=== PATIENT | male | born 2000 | race Caucasian/White ===

== ENCOUNTER 2022-02-23 02:11 | Outpatient (CLI) | payer OTHER, SELFPAY | END 2022-02-23 02:12 | disposition home or self-care (01) | LOC: AMB 03-05 15:02 | PROVIDERS: PCP Family Medicine; Visit Provider Family Medicine | DX: S09.93XA Unspecified injury of face, initial encounter (principal); Y04.0XXA Assault by unarmed brawl or fight, initial encounter; Y92.9 Unspecified place or not applicable | CPT/HCPCS: A0425; A0429 ==

== ENCOUNTER 2022-02-23 02:54 | Emergency (ER) | payer OTHER, SELFPAY ==
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
[2022-02-23 05:05] VITALS: BP 135/108; PULSE 125; RESP 16; TEMP 36.7; O2SAT 98; BMI 36.3
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
== END 2022-02-23 05:59 | disposition home or self-care (01) ==
PROVIDERS: Emergency Provider Family Medicine; PCP Family Medicine
DX: S00.83XA Contusion of other part of head, initial encounter (principal); Y04.2XXA Assault by strike against or bumped into by another person, initial encounter
CPT/HCPCS: 70486; 70490; 99283; 99284

== ENCOUNTER 2023-11-08 09:59 | Emergency (ER) | payer OTHER, SELFPAY ==
[2023-11-08 10:07] VITALS: BP 151/97; PULSE 68; RESP 16; TEMP 36.5; O2SAT 100; BMI 39.1
[2023-11-08 10:21] LABS: Appearance Urine Clear (Clear); Bilirubin Urine Negative (Negative); Blood Urine Negative (Negative); Color Urine Yellow (Yellow); Glucose Urine Negative (Negative); Ketones Urine Negative (Negative); Leukocyte Esterase Urine Negative (Negative); Nitrite Urine Negative (Negative); Protein Urine Negative (Negative); Specific Gravity Urine 1.025 (1.000-1.030); Urobilinogen Urine 0.2 (0.2-1.0); pH Urine 7.5 (5.0-8.5)
--- NOTE | 2023-11-08 10:21 | ED_ITS ---
HPI - General Adult General Chief complaint: Abdominal Pain Stated complaint: pain in R side abdomen Time Seen by Provider: 11/08/23 10:16 History of Present Illness HPI narrative: This 23-year-old male comes in reporting pain that began last evening in his right flank and lower back and now radiates around to his abdomen. He does not report any vomiting and has not had any fevers. He does not report any injury event. He indicates no personal or family history of kidney stones. He states that he did have a fair amount of alcohol last evening but this is not uncommon for him on occasion. He does report some nausea symptoms. Related Data Home Medications Medication Instructions Recorded Confirmed lisdexamfetamine 50 mg capsule mg 02/23/22 (Vyvanse) Previous Rx's Medication Instructions Recorded ketorolac 10 mg tablet 10 mg PO Q8H 5 days #15 tabs 11/08/23 Allergies Allergy/AdvReac Type Severity Reaction Status Date / Time No Known Drug Allergies Allergy Verified 02/23/22 05:05 Review of Systems Status of ROS: Reports: 10 or more systems reviewed and unremarkable except as noted in History and below Narrative: Constitutional: No fevers, no weight gain or loss. Eyes: No discharge. No vision changes. HENT: No congestion, no sore throat, no ear pain. Cardiovascular: No chest pain, no palpitations. Respiratory: No shortness of breath, no wheezes, no cough. Gastrointestinal: No vomiting, no diarrhea. Right flank pain and right abdominal pain. Genitourinary: No dysuria, no hematuria. Musculoskeletal: Normal range of motion. Skin: No rashes, no pruritis. Neurological: No dizziness, weakness, sensory change, speech change. Endo/Heme/Allergies: No bruising or bleeding. No polydipsia. Pysch: no suicidality, no anxiety, no insomnia. All other systems reviewed and are negative. PFSH PFSH Social History Smoking Status: Current some day smoker What tobacco products do you use: cigars How often do you have a drink containing alcohol: 2-3 times a week How many standard drinks containing alcohol do you have on a typical day: 10 or more How often do you have six or more drinks on one occasion: Weekly AUDIT-C Alcohol total score: 10 Non-prescribed substance use: denies use Exam Narrative: Exam Narrative: Constitutional: Well-developed, well-nourished, no acute distress. HEENT: Normocephalic, atraumatic. Neck: Normal range of motion. Nontender. Supple. Heart: Regular. No murmurs. Normal rate. Intact distal pulses. Lungs: Clear to auscultation. No chest discomfort. No wheezes, rhonchi, or rales. Abdomen: Normal bowel sounds. Some tenderness in the right abdomen. Rovsing sign is negative. No rebound tenderness. Genitalia: Deferred. Back: No midline tenderness. Normal range of motion. Extremities: Normal range of motion. No injury. Skin: Intact. No rash. Warm. No erythema or pallor. Neurologic: No altered sensation. No weakness. Alert and oriented. Psychiatric: No suicidality. No anxiety or depression. No insomnia. Nursing notes and vitals signs are reviewed. Const: Vital Signs, click to edit/add: Vital Signs - 24 hr 11/08/23 10:07 Temperature 97.7 F Pulse Rate [Pulse Oximeter] 68 Respiratory Rate 16 Blood Pressure [Ri ght Upper Arm] 151/97 H Pulse Oximetry 100 Oxygen Delivery Me thod Room Air Course Vital Signs Vital signs: Initial Vital Signs Temperature 97.7 F 11/08/23 10:07 Temperature Source Temporal Artery Scan 11/08/23 10:07 Pulse Rate 68 11/08/23 10:07 Respiratory Rate 16 11/08/23 10:07 Blood Pressure 151/97 H 11/08/23 10:07 Blood Pressure Mean 115 H 11/08/23 10:07 Blood Pressure Position Sitting 11/08/23 10:07 Pulse Oximetry 100 11/08/23 10:07 Oxygen Delivery Method Room Air 11/08/23 10:07 Vital Signs Temperature 97.7 F 11/08/23 10:07 Pulse Rate 68 11/08/23 10:07 Respiratory Rate 16 11/08/23 10:07 Blood Pressure 151/97 H 11/08/23 10:07 Pulse Oximetry 100 11/08/23 10:07 Oxygen Delivery Method Room Air 11/08/23 10:07 Temperature 97.7 F 11/08/23 10:07 Pulse Rate 68 11/08/23 10:07 Respiratory Rate 16 11/08/23 10:07 Blood Pressure 151/97 H 11/08/23 10:07 Pulse Oximetry 100 11/08/23 10:07 Oxygen Delivery Method Room Air 11/08/23 10:07 Medical Decision Making MDM Narrative Medical decision making narrative: This patient comes in reporting right flank pain radiating into his abdomen. Actually the pain is a little lower than the typical flank pain related to kidney symptoms. He arrives here with normal vital signs. Urinalysis shows no sign of infection or microscopic hematuria. A CT scan of his abdomen is obtained without contrast. This shows no evidence of cause for his pain. There is some increased stool in his ascending colon however which may be causing some crampy pain that he is describing. There is also a cyst in the right kidney th at has some calcifications. I encouraged him to follow up sometime in the future for ultrasound to further characterize this if needed. The patient is not having symptoms typical of an acute abdomen and is okay to return home. He did receive a prescription for Toradol. I advised him regarding signs and symptoms that would indicate a need for return and re-evaluation. Lab Data Labs: Lab Results 11/08/23 Range/Units 10:14 Urine Color Yellow (Yellow) Urine Appearance Clear (Clear) Urine pH 7.5 (5.0-8.5) Ur Specific Frannie 1.025 (1.000-1.030) Urine Protein Negative (Negative) Urine Glucose (UA) Negative (Negative) Urine Ketones Negative (Negative) Urine Blood Negative (Negative) Urine Nitrite Negative (Negative) Urine Bilirubin Negative (Negative) Urine Urobilinogen 0.2 (0.2-1.0) Ur Leukocyte Esterase Negative (Negative) Urine RBC 0-2 (0-2) Urine WBC 0-2 (0-5) Ur Squamous Epith Cells Few (None-Few) Urine Bacteria None (None) Imaging Data CT scan - abdomen: Radiologist's impression: There is a 2.9 cm hypoattenuating lesion in the lower right kidney, possibly a cyst with calcifications. Recommend follow-up with renal ultrasound for further characterization. Discharge Plan Discharge Clinical Impression: Abdominal pain Patient Disposition: Home, Self-Care Condition: Stable Additional Instructions: Take medication as needed and indicated. Activity as tolerated. Follow up with primary physician or return if symptoms are persistent or worsening. Prescriptions: New ketorolac 10 mg tablet 10 mg PO Q8H 5 Days Qty: 15 0RF No Action Vyvanse 50 mg capsule Patient Comments: 50 MG BY MOUTH DAILY NEEDS RECHECK IN CLINIC BEFORE FUTURE REFILLS. Follow Up/Referrals: Nestor Haney MD [Primary Care Provider] - Stand Alone Forms: [employer] Info Instructions
--- NOTE | 2023-11-08 10:21 | CT_ITS ---
Patient: TITUS OCONNOR Facility:?[facility] Patient ID:?[id number] Site Patient ID:?[id number] Site :?2000 Study:?CT-Abdomen/Pelvis WO-11/08/2023 10:37:19 AM Ordering Physician:NEVAEH Final Report: INDICATION: Right flank pain. TECHNIQUE: CT abdomen and pelvis without contrast. COMPARISON: None available. FINDINGS: Limited evaluation of solid organs and vasculature due to absence of intravenous contrast. Lower chest: Unremarkable. Liver: Unremarkable. Gallbladder and bile ducts: Unremarkable. Spleen: Unremarkable. Pancreas: Unremarkable. Adrenal glands: Unremarkable. Kidneys: No urinary tract stones and no hydronephrosis. There is a 2.9 cm hypoattenuating lesion in the lower right kidney. This measures fluid density but contains some coarse calcifications. GI tract: No bowel obstruction or inflammation. Appendix is normal. Vascular structures: No abdominal aortic aneurysm. Lymph nodes: No abdominal or pelvic lymphadenopathy. Miscellaneous: No free air or ascites. Small fat containing right inguinal hernia. Pelvic Organs: Unremarkable. Bones: No acute abnormality. No suspicious bone lesion. IMPRESSION: There is a 2.9 cm hypoattenuating lesion in the lower right kidney, possibly a cyst with calcifications. Recommend follow-up with renal ultrasound for further characterization. Please note that all CT scans at this facility use dose modulation, iterative reconstruction, and/or weight-based dosing when appropriate to reduce radiation dose to as low as reasonably achievable. Dictated by Ana Lund MD @ 11/08/2023 11:01:41 AM Signed by:?Ana Lund MD @11/08/2023 11:01:41 AM (Electronic Signature)
[2023-11-08 10:31] LABS: RBC Urine 0-2 (0-2); Squamous Epithelial Cell Urine Few (None-Few); WBC Urine 0-2 (0-5)
== END 2023-11-08 11:57 | disposition home or self-care (01) ==
PROVIDERS: Emergency Provider Emergency Medicine Emergency Medical Services; PCP Family Medicine
DX: R10.9 Unspecified abdominal pain (principal)
CPT/HCPCS: 74176; 81001; 99283; 99284

== ENCOUNTER 2024-01-01 07:14 | Outpatient (CLI) | payer OTHER, SELFPAY ==
--- NOTE | 2024-01-01 07:15 | CRLHL7_ITS ---
For Patients: As a result of the Century Cures Act, medical imaging exams and procedure reports are released immediately into your electronic medical record. You may view this report before your referring provider. If you have questions, please contact your health care provider. CLINICAL HISTORY: Renal cyst COMPARISON: CT 11/08/2023 TECHNIQUE: Miller scale and color Doppler images were acquired of the kidneys and urinary bladder. FINDINGS: Right renal cyst is present measuring 2.1 x 1.6 x 1.7 cm with a few internal septations present. No solid component or internal vascularity. The right kidney measures 10.1cm in length and the left kidney measures 10.1cm in length. The renal cortex appears of normal thickness. The urinary bladder appears normal. Color Doppler images reveal a normal appearance of both ureteral jets. There is no evidence of bladder calculi or diverticula. IMPRESSION: 2.1 cm Bosniak 2 cyst upper pole right kidney. Dictated by Sukhjinder Christianson MD @ 01/01/2024 11:30:25 AM (Electronically Signed)
== END 2024-01-01 07:15 | disposition home or self-care (01) ==
LOC: US 07:15
PROVIDERS: PCP Family Medicine; Visit Provider Family Medicine
DX: N28.1 Cyst of kidney, acquired (principal)
CPT/HCPCS: 76775